=== PATIENT | female | born 1965 | race Caucasian/White ===

== ENCOUNTER 2017-06-12 13:50 | Emergency (ER) | payer BC ==
[2017-06-12 15:26] VITALS: BP 139/86
--- NOTE | 2017-06-12 16:36 | UC ---
Respiratory Complaint HPI - HPI Summary HPI Summary: C/O URI Sx over the last 4 days. Coughing, congestion, chills, sore throat, headache, bodyaches. Sinus headaches with chest congestion. - History of Current Complaint Chief Complaint: UCGeneralIllness Stated Complaint: FLU SYMPTOMS Time Seen by Provider: 06/12/17 16:13 Hx Obtained From: Patient ?: No Onset/Duration: Sudden Onset, Lasting Days - 4, Still Present Timing: Constant Severity Initially: Moderate Severity Currently: Moderate Pain Intensity: 7 Character: Cough: Productive Aggravating Factors: Recumbent Position Alleviating Factors: Nothing Associated Signs And Symptoms: Positive: Dyspnea, Chills, URI, Nasal Congestion , Sinus Discomfort - Risk Factors Pulmonary Embolism Risk Factors: Smoking Cardiac Risk Factors: Smoking - Allergies/Home Medications Allergies/Adverse Reactions: Allergies Allergy/AdvReac Type Severity Reaction Status Date / Time No Known Allergies Allergy Verified 06/12/17 15:26 Home Medications: Home Medications Levothyroxine TAB* [Synthroid 100 MCG TAB*] 100 mcg PO DAILY 06/12/17 [History Confirmed 06/12/17] PMH/Surg Hx/FS Hx/Imm Hx Endocrine History: Hypothyroidism, Dyslipidemia GI/ History: Gastroesophageal Reflux Psychological History: Depression - Surgical History Surgical History: Yes Surgery Procedure, Year, and Place: TONSILS, TUBAL, HYSTERECTOMY , BLADDER REPAIR X2, - Family History Known Family History: Positive: Cardiac Disease, Hypertension, Diabetes - Social History Occupation: Employed Full-time Lives: With Family Alcohol Use: Occasionally Substance Use Type: None Smoking Status (MU): Heavy Every Day Tobacco Smoker Amount Used/How Often: 1/2 PPD Length of Time of Smoking/Using Tobacco: 40 YEARS Cessation Counseling: Patient Advised to Stop Review of Systems Constitutional: Fever, Chills ENT: Sore Throat, Sinus Pain/Tenderness Respiratory: Shortness Of Breath, Cough Musculoskeletal: Myalgia Is Patient Immunocompromised?: No All Other Systems Reviewed And Are Negative: Yes Physical Exam Triage Information Reviewed: Yes Appearance: No Pain Distress, Well-Nourished, Ill-Appearing Vital Signs: Initial Vital Signs Temp 98.1 F 06/12/17 15:22 Pulse 98 06/12/17 15:22 Resp 16 06/12/17 15:22 BP 139/86 06/12/17 15:22 Pulse Ox 99 06/12/17 15:22 Vital Signs Reviewed: Yes Eyes: Positive: Conjunctiva Clear ENT: Positive: Nasal congestion, TMs normal, Sinus tenderness - bilaterally maxillary Neck exam: Normal Respiratory: Positive: Wheezing - expiratory wheezes with coughing Cardiovascular Exam: Normal Musculoskeletal Exam: Normal Neurological Exam: Normal Psychological Exam: Normal Skin Exam: Normal UC Diagnostic Evaluation - Laboratory O2 Sat by Pulse Oximetry: 99 Respiratory Course/Dx - Differential Dx/Diagnosis Differential Diagnosis/HQI/PQRI: Asthma, Influenza, Lower Resp Infection, Sinusitis Provider Diagnoses: Acute URI. Acute sinusitis. Acute bronchospasm Discharge - Discharge Plan Condition: Stable Disposition: HOME Prescriptions: Albuterol HFA INHALER* [Ventolin HFA Inhaler*] 2 puff INH Q4H PRN #1 mdi PRN Reason: Wheezing Fluconazole [Fluconazole 150 mg tab] 150 mg PO ONCE #1 tablet predniSONE TAB* [Deltasone TAB*] 20 mg PO DAILY #18 tab Sulfamethox/Trimethoprim DS* [Bactrim DS 800/160 TAB*] 1 tab PO BID #20 tab Patient Education Materials: Upper Respiratory Infection (ED), Wheezing (ED), Sinusitis (ED), Sulfamethoxazole/Trimethoprim (By mouth), Prednisone (By mouth) Referrals: Non Staff,Doctor [Primary Care Provider] - Additional Instructions: Smoking Cessation Tricks. 1. Cut down by 1 cigarette per day every 2-3 days. Write the number of smokes for that day on the calendar. 2. Identify triggers to smoking: after meals, on the phone, in the car, with coffee, on breaks at work, etc. 3. Formulate a plan with a behavior to replace the smoking. Fireballs in the car , doodle pad on the phone, flavored creamer for the coffee, go for a walk after a meal or on break at work. Do not substitute food for cigarettes. 4. For stress smokes do deep breathing relaxation. Breath deep in through the nose hold the breath in for a few seconds then breath out slowly through the mouth.
== END 2017-06-12 16:54 | disposition home or self-care (01) ==
LOC: UCCORT 13:50
DX: J06.9 Acute upper respiratory infection, unspecified (principal); J01.90 Acute sinusitis, unspecified; J98.01 Acute bronchospasm; E03.9 Hypothyroidism, unspecified
CPT/HCPCS: 99212; G0463

== ENCOUNTER 2019-04-08 15:12 | Emergency (ER) | payer BC ==
--- OUTSIDE RECORDS SUMMARY | 2019-04-08 15:22 | XMS REPORT | Continuity of Care Document ---
:1965 External Reference #:[id number] Author Name Ayo Sales M.D. Address [address] [place] [address] Care Team Providers Name Role Phone Kathy Kearney MD - Family Medicine Care Team Information Client Resolution Specialist Problems Active Problems Provider Date Kidney stone Ayo Sales M.D. Onset: 03/20/2019 Tobacco user Castro Powell M.D., [facility] Onset: 02/09/2019 Electrocardiogram abnormal Castro Powell M.D., [facility] Onset: 02/09/2019 Lesion of ulnar nerve Morgan Arrington M.D. Onset: 08/31/2016 Arthralgia of the upper arm Morgan Arrington M.D. Onset: 08/31/2016 Medial epicondylitis Morgan Arrington M.D. Onset: 08/31/2016 Social History Type Date Description Comments Sex Unknown Cigarette Use Pack Years - 30 Tobacco Use Start: Unknown Heavy tobacco smoker (more than 10 cigarettes/day) Smoking Status Reviewed: 03/15/19 Heavy tobacco smoker (more than 10 cigarettes/day) ETOH Use Rarely consumes alcohol Tobacco Use Start: Unknown Heavy tobacco smoker (more than 10 cigarettes/day) Recreational Drug Use Denies Drug Use Allergies, Adverse Reactions, Alerts Active Allergies Reaction Severity Comments Date Naproxen mouth ulcers 08/03/2013 Inactive Allergies NKDA 02/22/2013 Medications Active Medications SIG Qnty Indications Ordering Provider Date Nexium 1 tablet by mouth Unknown 40mg Capsules DR qday Estradiol take 1/2 tablet by Unknown 1mg Tablets mouth every other night.. restarted 01/2016 Excedrin Back & Body Unknown 250-250mg Tablets Atorvastatin Calcium 1 tablet by mouth Joaquina Lerma 40mg qday Wanda, RPA-C Tablets Bupropion HCL ER (XL) 1 tablet by mouth Joaquina Lerma qdthomas Muñoz RPA-C 300mg Tablets ER 24HR Levothyroxine Sodium 1 tablet by mouth Joaquina Lerma qdthomas Muñoz RPA-C 25mcg Tablets Vitamin D 1 talbet by mouth Unknown (Ergocalciferol) qday 27077Tply Capsules Fluarix Quadrivalent Unknown 0.5ml Neyda Goodsense Ibuprofen as needed Unknown 200mg Tablets Metformin HCL Take 1 Tablet By Unknown 500mg Mouth Every Day In Tablets The Morning Medications Administered in Office Medication SIG Qnty Indications Ordering Provider Date Methylprednisolone acetate Lani Ashford, 11/12/2016 (Depomedrol) 80mg injection RPAC Injection Depomedrol 40mg/1cc Lani Ashford, 07/30/2016 (methylprednisolone acetate) RPAC Injection Methylprednisolone acetate Lani Ashford, 08/15/2015 (Depomedrol) 80mg injection RPAC Injection Methylprednisolone acetate Lani Ashford, 01/07/2015 (Depomedrol) 80mg injection RPAC Injection Methylprednisolone acetate Lani Ashford, 08/31/2013 (Depomedrol) 80mg injection RPAC Injection Depomedrol 40mg/1cc Lani Ashford, 02/22/2013 (methylprednisolone acetate) RPAC Injection Depomedrol 40mg/1cc Lani Ashford, 02/22/2013 (methylprednisolone acetate) RPAC Injection Immunizations Description No Information Available Vital Signs Date Vital Result Comment 03/20/2019 12:48pm BP Systolic 137 mmHg BP Diastolic 82 mmHg Body Temperature 97.3 F Heart Rate 79 /min Respiratory Rate 16 /min Height 62 inches 5'2" Weight 171.38 lb BMI (Body Mass Index) 31.3 kg/m2 BSA (Body Surface Area) 1.79 m2 [place] body weight in kilograms 50 kg O2 % BldC Oximetry 97 % Pain Level 6 Left flank pain 02/09/2019 8:00am BP Systolic Lying Down Resting Right Arm 102 mmHg BP Diastolic Lying Down Resting Right Arm 76 mmHg Heart Rate 73 /min Respiratory Rate 16 /min Height 62 inches 5'2" Weight 173.00 lb BMI (Body Mass Index) 31.6 kg/m2 BSA (Body Surface Area) 1.80 m2 [place] body weight in kilograms 50 kg O2 Saturation Level with Exercise 98 % Results Description No Information Available Procedures Date Code Description Status 02/22/2019 62657 Echocardiogram Complete Completed 02/09/2019 17990 EKG-Tracing And Report Completed Medical Devices Description No Information Available Encounters Type Date Location Provider Dx Diagnosis Office Visit 03/20/2019 Urology Mónica N20.0 Calculus of kidney 1:00p Roman Rollins Office Visit 02/09/2019 Cardiology Office Lisa [id number] Abnormal 8:00a mamadou Davis [JESSE] Roman, FACC [EKG] F17.210 Nicotine dependence, cigarettes, uncomplicated Assessments Date Code Description Provider 03/20/2019 N20.0 Calculus of kidney Ayo Sales M.D. 02/22/2019 R94.31 Abnormal electrocardiogram [ECG] [EKG] Castro Powell M.D., FACC 02/09/2019 R94.31 Abnormal electrocardiogram [ECG] [EKG] Castro Powell M.D., FACC 02/09/2019 F17.210 Nicotine dependence, cigarettes, Castro Powell M.D., uncomplicated FACC Plan of Treatment Future Appointment(s):03/21/2020 1:00 pm - Ayo Sales M.D. at [id number]/2018 - Ayo Sales M.D.N20.0 Calculus of kidneyNew Xrays:CT, Abdomen & amp; Pelvis W/O Contrast, Ordered: 03/20/19Comments:Patient with multiple right kidney stones. I told the patient that I don't feel that her pain is from her left kidney. Recommended she discusses with Giana workup for her spine as she could have nerveimpingement causing her pain. I will have the patient follow up with me in [address] scan. Functional Status Functional Condition Comment Date Status Independent with all ADL's Active Mental Status Description No Information Available Referrals Description No Information Available
--- OUTSIDE RECORDS SUMMARY | 2019-04-08 15:22 | XMS REPORT | Continuity of Care Document ---
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 Onset: 08/31/2016 Arthralgia of the upper arm Morgan Arrington M.D. Onset: 08/31/2016 Medial epicondylitis Morgan Arrington M.D. Onset: 08/31/2016 Social History Type Date Description Comments Sex Unknown Cigarette Use Pack Years - 30 Tobacco Use Start: Unknown Heavy tobacco smoker (more than 10 cigarettes/day) Smoking Status Reviewed: 02/09/19 Heavy tobacco smoker (more than 10 cigarettes/day) ETOH Use Rarely consumes alcohol Tobacco Use Start: Unknown Heavy tobacco smoker (more than 10 cigarettes/day) Allergies, Adverse Reactions, Alerts Active Allergies Reaction Severity Comments Date Naproxen mouth ulcers 08/03/2013 Inactive Allergies NKDA 02/22/2013 Medications Active Medications SIG Qnty Indications Ordering Provider Date Nexium Unknown 40mg Capsules DR Estradiol take 1/2 tablet by Unknown 1mg Tablets mouth every other night.. restarted 01/2016 Excedrin Back & Body Unknown 250-250mg Tablets Atorvastatin Calcium Joaquina Lerma 40mg Wanda, RPA-C Tablets Bupropion HCL ER (XL) Sonny Lermaistin Wanda, RPA-C 300mg Tablets ER 24HR Levothyroxine Sodium Maria GuadalupeJoaquina Wanda, RPA-C 25mcg Tablets Vitamin D Unknown (Ergocalciferol) 10787Gkqu Capsules Fluarix Quadrivalent Unknown 0.5ml Neyda Goodsense Ibuprofen as needed Unknown 200mg Tablets Medications Administered in Office Medication SIG Qnty [...] Available Vital Signs Date Vital Result Comment 02/09/2019 8:00am BP Systolic Lying Down Resting Right Arm 102 mmHg BP Diastolic Lying Down Resting Right Arm 76 mmHg Heart Rate 73 /min Respiratory Rate 16 /min Height 62 inches 5'2" Weight 173.00 lb BMI (Body Mass Index) 31.6 kg/m2 BSA (Body Surface Area) 1.80 m2 [place] body weight in kilograms 50 kg O2 Saturation Level with Exercise 98 % 12/11/2016 10:02am BP Systolic 126 mmHg BP Diastolic 85 mmHg Heart Rate 65 /min Results Description No Information Available Procedures Date Code Description Status 02/09/2019 97585 EKG-Tracing And Report Completed Medical Devices Description No Information Available Encounters Type Date Location Provider Dx Diagnosis Office Visit 02/09/2019 Cardiology Office Lisa [id number] Abnormal 8:00a Castro Johnson electrocardiogram [JESSE] Roman, [facility] [EKG] F17.210 Nicotine dependence, cigarettes, uncomplicated Assessments Date Code Description Provider 02/09/2019 R94.31 Abnormal electrocardiogram [ECG] [EKG] Castro Powell M.D., FACC 02/09/2019 F17.210 Nicotine dependence, cigarettes, Castro Powell M.D., uncomplicated FACC Plan of Treatment 02/09/2019 - Castro Powell M.D., [id number] Abnormal electrocardiogram [ ECG] [EKG]Comments:I believe the ECG is consistent with chronic lung disease. She will have an echocardiogram and call me to discuss the izsybhtI19.210 Nicotine dependence, cigarettes, uncomplicatedComments:Counseled patient on smoking cessation for more than 3 min.AllFollow up:Follow up with us on a PRN basis. Functional Status Functional Condition Comment Date Status Independent with all ADL's Active Mental Status Description No Information Available Referrals Description No Information Available
[2019-04-08 15:29] VITALS: BP 117/76
--- NOTE | 2019-04-08 15:38 | UC ---
Respiratory Complaint HPI - HPI Summary HPI Summary: 53 year old female smoker with head and sinus congestion, wheezing, greenish post-nasal drainage. - History of Current Complaint Chief Complaint: UCGeneralIllness Stated Complaint: COUGH/CONGESTION/SINUS/FEVER Time Seen by Provider: 04/08/19 15:37 Hx Obtained From: Patient ?: No Onset/Duration: Gradual Onset Timing: Constant Severity Initially: Mild Severity Currently: Moderate Pain Intensity: 7 Character: Cough: Nonproductive Aggravating Factors: Deep Breaths Alleviating Factors: Nothing Associated Signs And Symptoms: Positive: Wheezing, URI, Nasal Congestion, Sinus Discomfort - Risk Factors Pulmonary Embolism Risk Factors: Smoking - Allergies/Home Medications Allergies/Adverse Reactions: Allergies Allergy/AdvReac Type Severity Reaction Status Date / Time No Known Allergies Allergy Verified 04/08/19 15:26 Home Medications: Home Medications Aspirin/Acetaminophen/Caffeine [Excedrin Extra Strength Caplet] 1 each PO ONCE PRN 04/08/19 [History Confirmed 04/08/19] Dextromethorphan Polistirex [Robitussin ER] 1 dose PO ONCE PRN 04/08/19 [ History Confirmed 04/08/19] PMH/Surg Hx/FS Hx/Imm Hx Previously Healthy: Yes Endocrine History: Diabetes, Thyroid Disease, Dyslipidemia - Surgical History Surgical History: Yes Surgery Procedure, Year, and Place: TONSILS, TUBAL, HYSTERECTOMY , BLADDER REPAIR X2, - Family History Known Family History: Positive: Cardiac Disease, Hypertension, Diabetes - Social History Lives: With Family Alcohol Use: Rare Substance Use Type: None Smoking Status (MU): Heavy Every Day Tobacco Smoker Amount Used/How Often: 1/2 PPD Length of Time of Smoking/Using Tobacco: 40 YEARS Review of Systems All Other Systems Reviewed And Are Negative: Yes ENT: Positive: Nasal Discharge, Sinus Congestion, Sinus Pain/Tenderness Respiratory: Positive: Cough - Nonproductive cough, Other - wheezing Is Patient Immunocompromised?: No Physical Exam Triage Information Reviewed: Yes Appearance: Well-Appearing, No Pain Distress, Well-Nourished Vital Signs: Initial Vital Signs Temp 97.4 F 04/08/19 15:25 Pulse 72 04/08/19 15:25 Resp 20 04/08/19 15:25 BP 117/76 04/08/19 15:25 Pulse Ox 100 04/08/19 15:25 Vital Signs Reviewed: Yes Eyes: Positive: Conjunctiva Clear ENT: Positive: Pharynx normal - yellow thick post-nasal drainage, Nasal congestion, Nasal drainage, TMs normal, Sinus tenderness - Tenderness over maxillary sinuses bilaterally, Uvula midline Neck: Positive: Supple, Nontender, No Lymphadenopathy Respiratory: Positive: No respiratory distress, No accessory muscle use, Rhonchi - Scattered wheezing and rhonchi, no distress, Wheezing Cardiovascular: Positive: RRR, No Murmur, Pulses Normal, Brisk Capillary Refill Musculoskeletal Exam: Normal Neurological Exam: Normal Psychological Exam: Normal Skin Exam: Normal Respiratory Course/Dx - Course Course Of Treatment: Pt comfortable here in no distress. - Differential Dx/Diagnosis Provider Diagnosis: Sinusitis, Bronchitis Discharge ED - Sign-Out/Discharge Documenting (check all that apply): Patient Departure All imaging exams completed and their final reports reviewed: No Studies - Discharge Plan Condition: Fair Disposition: HOME Prescriptions: Albuterol HFA INHALER* [Ventolin HFA Inhaler*] 2 puff INH Q4H PRN 5 Days #1 mdi PRN Reason: Wheezing DOXYcycline CAP(*) [DOXYcycline 100MG CAP(*)] 100 mg PO BID 10 Days #20 cap predniSONE TAB* [Deltasone 10 MG TAB*] 10 mg PO DAILY 12 Days #30 tab Patient Education Materials: Sinusitis (ED), Acute Bronchitis (ED) Referrals: Kathy Kearney MD [Primary Care Provider] - Additional Instructions: Increase fluids, No antacids, dairy products or multivitamins 2 hours before you take the Doxycycline and 2 hours after you take it but take it with food. Take the Prednisone with food. Follow up with your doctor in 4-5 days if no improvement and go to the ER if you have any worsening symptoms. Stop smoking! - Billing Disposition and Condition Condition: FAIR Disposition: Home
== END 2019-04-08 15:59 | disposition home or self-care (01) ==
LOC: UCCORT 15:12
DX: J32.9 Chronic sinusitis, unspecified (principal); J40 Bronchitis, not specified as acute or chronic; E11.9 Type 2 diabetes mellitus without complications; F17.210 Nicotine dependence, cigarettes, uncomplicated
CPT/HCPCS: 99212; G0463

== ENCOUNTER 2019-05-22 09:45 | Emergency (ER) | payer BC ==
[2019-05-22 12:22] VITALS: BP 109/74
--- NOTE | 2019-05-22 12:29 | UC ---
Eye Complaint HPI - HPI Summary HPI Summary: 53-year-old female presents with 2 day history of left eye redness, irritation, and purulent drainage. States she has awoken the past 2 days with her eye "glued shut". History of intraocular lens transplant and reports some blurred vision to the left eye at baseline which is unchanged. Denies fever, chills, URI symptoms, eye pain, diplopia, or photophobia. - History of Current Complaint Chief Complaint: UCEye Stated Complaint: LEFT EYE Time Seen by Provider: 05/22/19 12:18 Hx Obtained From: Patient Pain Intensity: 3 - Allergies/Home Medications Allergies/Adverse Reactions: Allergies Allergy/AdvReac Type Severity Reaction Status Date / Time No Known Allergies Allergy Verified 05/22/19 12:18 Home Medications: Home Medications Bupropion XL* [Wellbutrin XL *] 300 mg PO DAILY 05/22/19 [History Confirmed 07/06] Esomeprazole Magnesium [Nexium] 40 mg PO DAILY 05/22/19 [History Confirmed 05/22] Lovastatin [Altoprev] 60 mg PO DAILY 05/22/19 [History Confirmed 05/22/19] PMH/Surg Hx/FS Hx/Imm Hx Endocrine History: Thyroid Disease, Dyslipidemia Respiratory History: Asthma GI/ History: Gastroesophageal Reflux Psychological History: Depression - Surgical History Surgical History: Yes Surgery Procedure, Year, and Place: TONSILS, TUBAL, HYSTERECTOMY , BLADDER REPAIR X2, INTRAOCCULAR LENS TRANPLANT - Family History Known Family History: Positive: Cardiac Disease, Hypertension, Diabetes - Social History Occupation: Employed Full-time Lives: With Family Alcohol Use: Rare Substance Use Type: None Smoking Status (MU): Heavy Every Day Tobacco Smoker Amount Used/How Often: 1/2 PPD Length of Time of Smoking/Using Tobacco: 40 YEARS Review of Systems All Other Systems Reviewed And Are Negative: Yes Constitutional: Negative: Fever, Chills Eyes: Positive: Drainage, Eye Redness. Negative: Blurred Vision, Diplopia, Photophobia ENT: Negative: Sore Throat, Ear Ache, Nasal Discharge, Sinus Congestion, Sinus Pain/Tenderness Respiratory: Negative: Cough Cardiovascular: Positive: Negative Gastrointestinal: Positive: Negative Genitourinary: Positive: Negative Musculoskeletal: Positive: Negative Neurological: Positive: Negative Is Patient Immunocompromised?: No Physical Exam - Summary Physical Exam Summary: GENERAL APPEARANCE: Well developed, well nourished, alert and cooperative, and appears to be in no acute distress. EYES: Right onjunctiva clear. No drainage. Left conjuctival erythema with small amount of purulent drainage noted. PERRL, EOM intact. Vision is grossly intact. EARS: External auditory canals and tympanic membranes clear, hearing grossly intact. NOSE: No nasal discharge. THROAT: Pharynx normal. Tonsils surgically absent. Uvula midline. NECK: Neck supple, non-tender without lymphadenopathy. CARDIAC: Normal S1 and S2. No S3, S4 or murmurs. Rhythm is regular. There is no peripheral edema, cyanosis or pallor. Extremities are warm and well perfused. Capillary refill is less than 2 seconds. Peripheral pulses intact. LUNGS: Clear to auscultation without rales, rhonchi, wheezing or diminished breath sounds. ABDOMEN: Positive bowel sounds. Soft, nondistended, nontender. No guarding or rebound. No masses or hepatosplenomegally. MUSKULOSKELETAL: ROM intact to all extremities. No joint erythema or tenderness. Normal muscular development. Normal gait. SKIN: Skin normal color, texture and turgor with no lesions or eruptions. Triage Information Reviewed: Yes Vital Signs: Initial Vital Signs Temp 97.9 F 05/22/19 12:19 Pulse 65 05/22/19 12:19 Resp 14 05/22/19 12:19 BP 109/74 05/22/19 12:19 Pulse Ox 99 05/22/19 12:19 Vital Signs Reviewed: Yes Eye Complaint Course/Dx - Course Course Of Treatment: 53-year-old female presents with 2 day history of left eye redness, irritation, and purulent drainage. States she has awoken the past 2 days with her eye "glued shut". History of intraocular lens transplant and reports some blurred vision to the left eye at baseline which is unchanged. Denies fever, chills, URI symptoms, eye pain, diplopia, or photophobia. Afebrile. Vital signs stable. Patient and left conjunctival erythema with some purulent drainage but otherwise unremarkable exam. Will treat her for an acute bacterial conjunctivitis of the left eye with ciprofloxacin ophthalmic 2 drops into the affected eye every 2 hours while awake for 2 days then 2 drops every 4 hours while awake for the next 5 days. She is to return here or follow up with her primary care provider in 3 days if symptoms are not improving. Anticipatory guidance and warning symptoms are reviewed with the patient. Verbalizes understanding and agrees with plan of care. - Differential Dx/Diagnosis Differential Diagnosis/HQI/PQRI: Conjunctivitis, Corneal Abrasion, Foreign Body , Keratitis, Periorbital Cellulitis, Orbital Cellulitis Provider Diagnosis: Bacterial conjunctivitis of left eye Discharge ED - Sign-Out/Discharge Documenting (check all that apply): Patient Departure All imaging exams completed and their final reports reviewed: No Studies - Discharge Plan Condition: Stable Disposition: HOME Prescriptions: Ciprofloxacin 0.3% OPTH.SHANEKA* [Cipro 0.3% Opth*] 2 drop LEFT EYE Q2H #1 btl Patient Education Materials: Conjunctivitis (ED) Referrals: Aries Franklin MD [Primary Care Provider] - Additional Instructions: Start ciprofloxacin ophthalmic drops. Instill 2 drops into the affected eye(s) every 2 hours while awake for 2 days then 2 drops every 4 hours while awake for the next 5 days. To avoid reinfection or spreading infection: * Use washcloths and towels once then launder. * Do not share washcloths or towels with others. * Change your pillow case each morning until you have finished treatment. * You should throw out any eye makeup, especially mascara, and use a new one once you have finished treatment. Follow up here or with your primary care provider in 3 days if no improvement. Seek immediate medical attention in the emergency room if you develop fever greater than 100.5 F, have pain or swelling of the eye, visual disturbances, loss of vision, or any worsening of symptoms. - Billing Disposition and Condition Condition: STABLE Disposition: Home
== END 2019-05-22 12:51 | disposition home or self-care (01) ==
LOC: UCCORT 09:45
DX: H10.89 Other conjunctivitis (principal); E78.5 Hyperlipidemia, unspecified; F17.210 Nicotine dependence, cigarettes, uncomplicated; F32.9 Major depressive disorder, single episode, unspecified; J45.909 Unspecified asthma, uncomplicated; Z79.899 Other long term (current) drug therapy; K21.9 Gastro-esophageal reflux disease without esophagitis
CPT/HCPCS: 99212; G0463